=== PATIENT | male | born 1960 | race Caucasian/White ===

== ENCOUNTER 2019-07-28 16:04 | Observation (INO) | payer BC ==
[2019-07-28] MEDS ORDERED: Diltiazem 25 MG/5 ML SDV IVPUSH ONE ×2 (16:35→17:06)
[2019-07-28] MEDS ORDERED: Sodium Chloride 0.9% 1,000 ML IV ONE (16:35)
[2019-07-28] MEDS ORDERED: Ondansetron 4 MG/2 ML SDV IVPUSH ONE (16:45)
[2019-07-28 16:57] LABS: BLOOD UREA NITROGEN,BUN 16 mg/dL (7.0-18.0); CARBON DIOXIDE,CO2 26.5 mmol/L (21.0-32.0); CHLORIDE,CL 105 mmol/L (98-107); GLUCOSE RANDOM 103 mg/dL (74-106); POTASSIUM,K 3.5 mmol/L (3.5-5.1); SODIUM,NA 140 mmol/L (136-148)
[2019-07-28] MEDS ORDERED: Enoxaparin 60 MG/0.6 ML Syringe SUBCUT ONE (17:06)
--- NOTE | 2019-07-28 17:08 | EDM.PDOC ---
ED HPI GENERAL MEDICAL PROBLEM - General Chief Complaint: Cardiovascular Problem Stated Complaint: A-FIB Time Seen by Provider: 07/28/19 17:06 Source of Information: Reports: Patient - History of Present Illness INITIAL COMMENTS - FREE TEXT/NARRATIVE: HISTORY AND PHYSICAL: History of present illness: []Patient presents via private vehicle, apparently seen at [facility] and diagnosed with A. fib with RVR, I did not status speak with the physician however the patient presents by private vehicle as above his rate is 160s on arrival rated provide fluids diltiazem with some improvement in rate remains in atrial fibrillation No fever nausea vomiting chills sweats no chest pain shortness breath headache dizziness palpitation no bowel or urine symptoms Chronic illness or disease no medications no cardiac history Review of systems: As per history of present illness and below otherwise all systems reviewed and negative. Past medical history: As per history of present illness and as reviewed below otherwise noncontributory. Surgical history: As per history of present illness and as reviewed below otherwise noncontributory. Social history: No reported history of drug or alcohol abuse. Family history: As per history of present illness and as reviewed below otherwise noncontributory. Physical exam: HEENT: Atraumatic, normocephalic, pupils reactive, negative for conjunctival pallor or scleral icterus, mucous membranes moist, throat clear, neck supple, nontender, trachea midline. Lungs: Clear to auscultation, breath sounds equal bilaterally, chest nontender. Heart: S1S2, regular, negative for clicks, rubs, or JVD. Abdomen: Soft, nondistended, nontender. Negative for masses or hepatosplenomegaly. Negative for costovertebral tenderness. Pelvis: Stable nontender. Genitourinary: Deferred. Rectal: Deferred. Extremities: Atraumatic, negative for cords or calf pain. Neurovascular unremarkable. Neuro: Awake, alert, oriented. Cranial nerves II through XII unremarkable. Cerebellum unremarkable. Motor and sensory unremarkable throughout. Exam nonfocal. Diagnostics: [CBC CMP UA troponin INR Chest 1 view EKG ] Therapeutics: [ normal saline Cardizem ] Impression: [ new-onset A. fib with RVR ] Definitive disposition and diagnosis as appropriate pending reevaluation and review of above. - Related Data Allergies Allergy/AdvReac Type Severity Reaction Status Date / Time amoxicillin [From Augmentin] Allergy Hives Verified 07/28/19 16:19 clavulanic acid Allergy Hives Verified 07/28/19 16:19 [From Augmentin] Penicillins Allergy Hives Verified 07/28/19 16:19 Home Meds: Home Meds . [No Known Home Meds] 07/28/19 [History] ED ROS GENERAL - Review of Systems Review Of Systems: See Below ED EXAM, GENERAL - Physical Exam Exam: See Below Course - Vital Signs Last Recorded V/S: Last Vital Signs Temp 97 F 07/28/19 16:28 Pulse 90 07/28/19 17:46 Resp 18 07/28/19 17:46 BP 112/78 07/28/19 17:46 Pulse Ox 96 07/28/19 17:46 - Orders/Labs/Meds Orders: Active Orders 24 hr Category Date Time Status EKG Documentation Completion [RC] STAT Care 07/28/19 16:35 Active MAGNESIUM [CHEM] Stat Lab 07/28/19 17:48 Ordered UA RFX LORI AND CULT IF INDIC [URIN] Stat Lab 07/28/19 16:35 Ordered Labs: Laboratory Tests 07/28/19 07/28/19 Range/Units 16:19 16:19 WBC 6.31 (4.0-11.0) K/uL RBC 4.91 (4.50-5.90) M/uL Hgb 16.1 (13.0-17.0) g/dL Hct 48.3 (38.0-50.0) % MCV 98.4 H (80.0-98.0) fL MCH 32.8 H (27.0-32.0) pg MCHC 33.3 (31.0-37.0) g/dL RDW Std Deviation 49.0 (28.0-62.0) fl RDW Coeff of Wilder 14 (11.0-15.0) % Plt Count 158 (150-400) K/uL MPV 11.60 (7.40-12.00) fL Neut % (Auto) 56.8 (48.0-80.0) % Lymph % (Auto) 29.8 (16.0-40.0) % [place] % (Auto) 10.5 (0.0-15.0) % Eos % (Auto) 2.4 (0.0-7.0) % Baso % (Auto) 0.5 (0.0-1.5) % Neut # (Auto) 3.6 (1.4-5.7) K/uL Lymph # (Auto) 1.9 (0.6-2.4) K/uL [place] # (Auto) 0.7 (0.0-0.8) K/uL Eos # (Auto) 0.2 (0.0-0.7) K/uL Baso # (Auto) 0.0 (0.0-0.1) K/uL Nucleated RBC % 0.0 /100WBC Nucleated RBCs # 0 K/uL Sodium 140 (136-148) mmol/L Potassium 3.5 (3.5-5.1) mmol/L Chloride 105 (98-107) mmol/L Carbon Dioxide 26.5 (21.0-32.0) mmol/L BUN 16 (7.0-18.0) mg/dL Creatinine 1.2 (0.8-1.3) mg/dL Est Cr Clr Drug Dosing 67.10 mL/min Estimated GFR (MDRD) > 60.0 ml/min Glucose 103 (74-106) mg/dL Calcium 8.8 (8.5-10.1) mg/dL Total Bilirubin 0.2 (0.2-1.0) mg/dL AST 19 (15-37) IU/L ALT 26 (14-63) IU/L Alkaline Phosphatase 58 (46-116) U/L Troponin I < 0.050 (0.000-0.056) ng/mL Total Protein 7.0 (6.4-8.2) g/dL Albumin 3.6 (3.4-5.0) g/dL Globulin 3.4 (2.6-4.0) g/dL Albumin/Globulin Ratio 1.1 (0.9-1.6) Meds: Medications Discontinued Medications Generic Name Dose Route Start Last Admin Trade Name Freq PRN Reason Stop Dose Admin Diltiazem HCl 25 mg 07/28/19 16:35 07/28/19 16:47 Diltiazem IVPUSH 07/28/19 16:36 25 mg ONETIME ONE Administration Diltiazem HCl 20 mg 07/28/19 17:06 Diltiazem IVPUSH 07/28/19 17:07 ONETIME ONE Enoxaparin Sodium 85 mg 07/28/19 17:38 07/28/19 17:43 Lovenox SUBCUT 07/28/19 17:39 85 mg ONETIME ONE Administration Sodium Chloride 1,000 mls @ 999 mls/hr 07/28/19 16:35 07/28/19 16:46 Normal Saline IV 07/28/19 17:35 999 mls/hr STAT ONE Administration Ondansetron HCl 4 mg 07/28/19 16:45 Zofran IVPUSH 07/28/19 16:46 ONETIME ONE Departure - Departure Time of Disposition: 17:48 Disposition: Refer to Observation Condition: Fair Clinical Impression: Atrial fibrillation with RVR Referrals: PCP,None [Primary Care Provider] - Forms: ED Department Discharge - My Orders Last 24 Hours: My Active Orders 07/28/19 16:35 EKG Documentation Completion [RC] STAT UA RFX LORI AND CULT IF INDIC [URIN] Stat - Assessment/Plan Last 24 Hours: My Active Orders 07/28/19 16:35 EKG Documentation Completion [RC] STAT UA RFX LORI AND CULT IF INDIC [URIN] Stat
--- NOTE | 2019-07-28 17:16 | CR ---
Indication: AFib. Technique: A single AP portable view of the chest was obtained. Comparison: None Findings: The heart is normal in size. The lungs are clear. No infiltrate, pleural effusion, pneumothorax is identified. Impression: No acute cardiopulmonary process. Dictated by Veronica Cerna MD @ Jul 28 2019 5:14PM Signed by Dr. Veronica Cerna @ Jul 28 2019 5:15PM
[2019-07-28] MEDS ORDERED: Enoxaparin 100 MG/1 ML Syringe SUBCUT ONE (17:38)
[2019-07-28] MEDS ORDERED: Potassium Chloride 20 MEQ Tab.ER PO ONE (17:48)
--- NOTE | 2019-07-28 18:50 | PCM.HP.2 ---
H&P History of Present Illness - General Date of Service: 07/28/19 Admit Problem/Dx: Admission Diagnosis/Problem Admission Diagnosis/Problem Atrial fibrillation - History of Present Illness Initial Comments - Free Text/Narative: 59 yo male who presents to the ED with complaints of chest tightness intermittently for several days. It would last for several hours and he describes the discomfort as fast heart beat. He has some shortness of breath with this. IN the ED he was noted to be in atrial fibrillation with a heart rate of 160. He was given IV diltiazem and converted to normal sinus with heart rate of 90 bpm. - Related Data Allergies/Adverse Reactions: Allergies Allergy/AdvReac Type Severity Reaction Status Date / Time amoxicillin [From Augmentin] Allergy Hives Verified 07/28/19 20:16 clavulanic acid Allergy Hives Verified 07/28/19 20:16 [From Augmentin] Penicillins Allergy Hives Verified 07/28/19 20:16 Home Medications: Home Meds . [No Known Home Meds] 07/28/19 [History] Past Medical History Other HEENT History: eardrum replacement - Past Surgical History HEENT Surgical History: Reports: Tonsillectomy Social & Family History - Family History Family Medical History: Noncontributory - Tobacco Use Smoking Status *Q: Never Smoker - Recreational Drug Use Recreational Drug Use: No H&P Review of Systems - Review of Systems: Review Of Systems: Comprehensive ROS is negative, except as noted in HPI. Exam - Exam Exam: See Below - Vital Signs Vital Signs: Last Vital Signs Temp 36.1 C 07/28/19 16:28 Pulse 90 07/28/19 17:46 Resp 18 07/28/19 17:46 BP 112/78 07/28/19 17:46 Pulse Ox 96 07/28/19 17:46 Weight: 83.915 kg - Exam General: Alert, Oriented HEENT: Mucosa Moist & [place] Neck: Supple Lungs: Clear to Auscultation, Normal Respiratory Effort Cardiovascular: Regular Rate, Regular Rhythm Extremities: Non-Tender, No Pedal Edema Skin: Warm, Dry, Intact Neurological: No: Focal Deficit - Patient Data Lab Results Last 24 hrs: Laboratory Results - last 24 hr 07/28/19 07/28/19 07/28/19 Range/Units 16:19 16:19 16:19 WBC 6.31 (4.0-11.0) K/uL RBC 4.91 (4.50-5.90) M/uL Hgb 16.1 (13.0-17.0) g/dL Hct 48.3 (38.0-50.0) % MCV 98.4 H (80.0-98.0) fL MCH 32.8 H (27.0-32.0) pg MCHC 33.3 (31.0-37.0) g/dL RDW Std Deviation 49.0 (28.0-62.0) fl RDW Coeff of Wilder 14 (11.0-15.0) % Plt Count 158 (150-400) K/uL MPV 11.60 (7.40-12.00) fL Neut % (Auto) 56.8 (48.0-80.0) % Lymph % (Auto) 29.8 (16.0-40.0) % [place] % (Auto) 10.5 (0.0-15.0) % Eos % (Auto) 2.4 (0.0-7.0) % Baso % (Auto) 0.5 (0.0-1.5) % Neut # (Auto) 3.6 (1.4-5.7) K/uL Lymph # (Auto) 1.9 (0.6-2.4) K/uL [place] # (Auto) 0.7 (0.0-0.8) K/uL Eos # (Auto) 0.2 (0.0-0.7) K/uL Baso # (Auto) 0.0 (0.0-0.1) K/uL Nucleated RBC % 0.0 /100WBC Nucleated RBCs # 0 K/uL Sodium 140 (136-148) mmol/L Potassium 3.5 (3.5-5.1) mmol/L Chloride 105 (98-107) mmol/L Carbon Dioxide 26.5 (21.0-32.0) mmol/L BUN 16 (7.0-18.0) mg/dL Creatinine 1.2 (0.8-1.3) mg/dL Est Cr Clr Drug Dosing 67.10 mL/min Estimated GFR (MDRD) > 60.0 ml/min Glucose 103 (74-106) mg/dL Calcium 8.8 (8.5-10.1) mg/dL Magnesium 1.9 (1.8-2.4) mg/dL Total Bilirubin 0.2 (0.2-1.0) mg/dL AST 19 (15-37) IU/L ALT 26 (14-63) IU/L Alkaline Phosphatase 58 (46-116) U/L Troponin I < 0.050 (0.000-0.056) ng/mL Total Protein 7.0 (6.4-8.2) g/dL Albumin 3.6 (3.4-5.0) g/dL Globulin 3.4 (2.6-4.0) g/dL Albumin/Globulin Ratio 1.1 (0.9-1.6) Result Diagrams: 07/29/19 03:00 07/29/19 03:00 Problem List Initiated/Reviewed/Updated: Yes Orders Last 24hrs: Active Orders 24 hr Category Date Time Status Admission Status [Patient Status] [ADT] Stat ADT 07/28/19 17:49 Active Antiembolic Devices [RC] PER UNIT ROUTINE Care 07/28/19 18:44 Active Oxygen Therapy [RC] PRN Care 07/28/19 18:43 Active Up ad Yancy [RC] ASDIRECTED Care 07/28/19 18:43 Active VTE/DVT Education [RC] PER UNIT ROUTINE Care 07/28/19 18:43 Active Vital Signs [RC] Q4H Care 07/28/19 18:43 Active Regular Diet [DIET] Diet 07/28/19 Breakfast Active BASIC METABOLIC PANEL,BMP [CHEM] AM Lab 07/29/19 05:11 Ordered CBC WITH AUTO DIFF [HEME] AM Lab 07/29/19 05:11 Ordered TROPONIN I [CHEM] Q6H Lab 07/28/19 21:00 Ordered TROPONIN I [CHEM] Q6H Lab 07/29/19 03:00 Ordered UA RFX LORI AND CULT IF INDIC [URIN] Stat Lab 07/28/19 16:35 Ordered Metoprolol Tartrate [Lopressor] Med 07/28/19 21:00 Active 25 mg PO Q12H Sequential Compression Device [OM.PC] Per Unit Routine Oth 07/28/19 18:44 Ordered Resuscitation Status Routine Resus Stat 07/28/19 18:43 Ordered Medication Orders Metoprolol Tartrate (Lopressor) 25 mg PO Q12H ARYAN Assessment/Plan Comment:: 59 yo male admitted for atrial fibrillation with RVR. His heart rate is now in normal sinus rhythm. We will monitor overnight on telemetry. He was given lovenox, a liter of fluid and potassium in the ED. We will start metoprolol tonight.
[2019-07-28] MEDS: Metoprolol Tartrate 25 MG Tab PO SCH (21:44)
[2019-07-29 03:20] LABS: BLOOD UREA NITROGEN,BUN 15 mg/dL (7.0-18.0); CARBON DIOXIDE,CO2 28.5 mmol/L (21.0-32.0); CHLORIDE,CL 104 mmol/L (98-107); GLUCOSE RANDOM 87 mg/dL (74-106); POTASSIUM,K 4.1 mmol/L (3.5-5.1); SODIUM,NA 139 mmol/L (136-148)
--- NOTE | 2019-07-29 07:26 | PCM.DCSUM1 ---
Discharge Summary - Discharge Data Discharge Date: 07/29/19 Discharge Disposition: Home, Self-Care 01 Condition: Stable - Referral to Home Health Primary Care Physician: PCP None - Patient Summary/Data Hospital Course: 59 yo male who was admitted for atrial fibrillation with RVR. He presented to the ED with complaints of palpitations intermittently for several days. In the ED he was noted to be in atrial fibrillation with a heart rate of 160. He was given IV diltiazem and converted to normal sinus with heart rate of 90 bpm. He was monitored on medical floor overnight and has remained in normal sinus. He was give a dose of Metoprolol but was noted to have borderline low blood pressures so it was not continued. He had serial negative cardiac enzymes. CHADVASC score was zero. He was discharged home and is to have follow up with [facility]. - Discharge Plan Home Medications: Home Meds . [No Known Home Meds] 07/28/19 [History] Forms: ED Department Discharge Referrals: PCP,None [Primary Care Provider] - - Discharge Summary/Plan Comment DC Time >30 min.: No - Patient Data Vitals - Most Recent: Last Vital Signs Temp 36.3 C 07/29/19 04:38 Pulse 63 07/29/19 04:38 Resp 18 07/29/19 04:38 BP 101/59 L 07/29/19 04:38 Pulse Ox 96 07/29/19 04:38 Weight - Most Recent: 83.915 kg I&O - Last 24 hours: Intake & Output 07/28/19 07/29/19 07/29/19 22:59 06:59 14:59 Intake Total 1100 Output Total 1050 Balance 50 Lab Results - Last 24 hrs: Laboratory Results - last 24 hr 07/28/19 07/28/19 07/28/19 Range/Units 16:19 16:19 16:19 WBC 6.31 (4.0-11.0) K/uL RBC 4.91 (4.50-5.90) M/uL Hgb 16.1 (13.0-17.0) g/dL Hct 48.3 (38.0-50.0) % MCV 98.4 H (80.0-98.0) fL MCH 32.8 H (27.0-32.0) pg MCHC 33.3 (31.0-37.0) g/dL RDW Std Deviation 49.0 (28.0-62.0) fl RDW Coeff of Wilder 14 (11.0-15.0) % Plt Count 158 (150-400) K/uL MPV 11.60 (7.40-12.00) fL Neut % (Auto) 56.8 (48.0-80.0) % Lymph % (Auto) 29.8 (16.0-40.0) % [place] % (Auto) 10.5 (0.0-15.0) % Eos % (Auto) 2.4 (0.0-7.0) % Baso % (Auto) 0.5 (0.0-1.5) % Neut # (Auto) 3.6 (1.4-5.7) K/uL Lymph # (Auto) 1.9 (0.6-2.4) K/uL [place] # (Auto) 0.7 (0.0-0.8) K/uL Eos # (Auto) 0.2 (0.0-0.7) K/uL Baso # (Auto) 0.0 (0.0-0.1) K/uL Nucleated RBC % 0.0 /100WBC Nucleated RBCs # 0 K/uL Sodium 140 (136-148) mmol/L Potassium 3.5 (3.5-5.1) mmol/L Chloride 105 (98-107) mmol/L Carbon Dioxide 26.5 (21.0-32.0) mmol/L BUN 16 (7.0-18.0) mg/dL Creatinine 1.2 (0.8-1.3) mg/dL Est Cr Clr Drug Dosing 67.10 mL/min Estimated GFR (MDRD) > 60.0 ml/min Glucose 103 (74-106) mg/dL Calcium 8.8 (8.5-10.1) mg/dL Magnesium 1.9 (1.8-2.4) mg/dL Total Bilirubin 0.2 (0.2-1.0) mg/dL AST 19 (15-37) IU/L ALT 26 (14-63) IU/L Alkaline Phosphatase 58 (46-116) U/L Troponin I < 0.050 (0.000-0.056) ng/mL Total Protein 7.0 (6.4-8.2) g/dL Albumin 3.6 (3.4-5.0) g/dL Globulin 3.4 (2.6-4.0) g/dL Albumin/Globulin Ratio 1.1 (0.9-1.6) Urine Color Urine Appearance Urine pH (5.0-8.0) Ur Specific [place] (1.001-1.035) Urine Protein (NEGATIVE) mg/dL Urine Glucose (UA) (NEGATIVE) mg/dL Urine Ketones (NEGATIVE) mg/dL Urine Occult Blood (NEGATIVE) Urine Nitrite (NEGATIVE) Urine Bilirubin (NEGATIVE) Urine Urobilinogen (<2.0) EU/dL Ur Leukocyte Esterase (NEGATIVE) 07/28/19 07/28/19 07/29/19 Range/Units 19:00 21:05 03:00 WBC (4.0-11.0) K/uL RBC (4.50-5.90) M/uL Hgb (13.0-17.0) g/dL Hct (38.0-50.0) % MCV (80.0-98.0) fL MCH (27.0-32.0) pg MCHC (31.0-37.0) g/dL RDW Std Deviation (28.0-62.0) fl RDW Coeff of Wilder (11.0-15.0) % Plt Count (150-400) K/uL MPV (7.40-12.00) fL Neut % (Auto) (48.0-80.0) % Lymph % (Auto) (16.0-40.0) % [place] % (Auto) (0.0-15.0) % Eos % (Auto) (0.0-7.0) % Baso % (Auto) (0.0-1.5) % Neut # (Auto) (1.4-5.7) K/uL Lymph # (Auto) (0.6-2.4) K/uL [place] # (Auto) (0.0-0.8) K/uL Eos # (Auto) (0.0-0.7) K/uL Baso # (Auto) (0.0-0.1) K/uL Nucleated RBC % /100WBC Nucleated RBCs # K/uL Sodium (136-148) mmol/L Potassium (3.5-5.1) mmol/L Chloride (98-107) mmol/L Carbon Dioxide (21.0-32.0) mmol/L BUN (7.0-18.0) mg/dL Creatinine (0.8-1.3) mg/dL Est Cr Clr Drug Dosing mL/min Estimated GFR (MDRD) ml/min Glucose (74-106) mg/dL Calcium (8.5-10.1) mg/dL Magnesium (1.8-2.4) mg/dL Total Bilirubin (0.2-1.0) mg/dL AST (15-37) IU/L ALT (14-63) IU/L Alkaline Phosphatase (46-116) U/L Troponin I < 0.050 < 0.050 (0.000-0.056) ng/mL Total Protein (6.4-8.2) g/dL Albumin (3.4-5.0) g/dL Globulin (2.6-4.0) g/dL Albumin/Globulin Ratio (0.9-1.6) Urine Color YELLOW Urine Appearance CLEAR Urine pH 6.0 (5.0-8.0) Ur Specific [place] 1.010 (1.001-1.035) Urine Protein NEGATIVE (NEGATIVE) mg/dL Urine Glucose (UA) NEGATIVE (NEGATIVE) mg/dL Urine Ketones NEGATIVE (NEGATIVE) mg/dL Urine Occult Blood NEGATIVE (NEGATIVE) Urine Nitrite NEGATIVE (NEGATIVE) Urine Bilirubin NEGATIVE (NEGATIVE) Urine Urobilinogen 0.2 (<2.0) EU/dL Ur Leukocyte Esterase NEGATIVE (NEGATIVE) 07/29/19 07/29/19 Range/Units 03:00 03:00 WBC 6.72 (4.0-11.0) K/uL RBC 4.62 (4.50-5.90) M/uL Hgb 15.4 (13.0-17.0) g/dL Hct 45.6 (38.0-50.0) % MCV 98.7 H (80.0-98.0) fL MCH 33.3 H (27.0-32.0) pg MCHC 33.8 (31.0-37.0) g/dL RDW Std Deviation 49.8 (28.0-62.0) fl RDW Coeff of Wilder 14 (11.0-15.0) % Plt Count 162 (150-400) K/uL MPV 11.10 (7.40-12.00) fL Neut % (Auto) 55.0 (48.0-80.0) % Lymph % (Auto) 32.4 (16.0-40.0) % [place] % (Auto) 9.5 (0.0-15.0) % Eos % (Auto) 2.7 (0.0-7.0) % Baso % (Auto) 0.4 (0.0-1.5) % Neut # (Auto) 3.7 (1.4-5.7) K/uL Lymph # (Auto) 2.2 (0.6-2.4) K/uL [place] # (Auto) 0.6 (0.0-0.8) K/uL Eos # (Auto) 0.2 (0.0-0.7) K/uL Baso # (Auto) 0.0 (0.0-0.1) K/uL Nucleated RBC % 0.0 /100WBC Nucleated RBCs # 0 K/uL Sodium 139 (136-148) mmol/L Potassium 4.1 (3.5-5.1) mmol/L Chloride 104 (98-107) mmol/L Carbon Dioxide 28.5 (21.0-32.0) mmol/L BUN 15 (7.0-18.0) mg/dL Creatinine 1.1 (0.8-1.3) mg/dL Est Cr Clr Drug Dosing 73.20 mL/min Estimated GFR (MDRD) > 60.0 ml/min Glucose 87 (74-106) mg/dL Calcium 8.7 (8.5-10.1) mg/dL Magnesium (1.8-2.4) mg/dL Total Bilirubin (0.2-1.0) mg/dL AST (15-37) IU/L ALT (14-63) IU/L Alkaline Phosphatase (46-116) U/L Troponin I (0.000-0.056) ng/mL Total Protein (6.4-8.2) g/dL Albumin (3.4-5.0) g/dL Globulin (2.6-4.0) g/dL Albumin/Globulin Ratio (0.9-1.6) Urine Color Urine Appearance Urine pH (5.0-8.0) Ur Specific [place] (1.001-1.035) Urine Protein (NEGATIVE) mg/dL Urine Glucose (UA) (NEGATIVE) mg/dL Urine Ketones (NEGATIVE) mg/dL Urine Occult Blood (NEGATIVE) Urine Nitrite (NEGATIVE) Urine Bilirubin (NEGATIVE) Urine Urobilinogen (<2.0) EU/dL Ur Leukocyte Esterase (NEGATIVE) Med Orders - Current: Current Medications Metoprolol Tartrate (Lopressor) 25 mg PO Q12H [facility] Last Admin: 07/28/19 21:44 Dose: 25 mg Discontinued Medications Diltiazem HCl (Diltiazem) 25 mg IVPUSH ONETIME ONE Stop: 07/28/19 16:36 Last Admin: 07/28/19 16:47 Dose: 25 mg Diltiazem HCl (Diltiazem) 20 mg IVPUSH ONETIME ONE Stop: 07/28/19 17:07 Last Admin: 07/28/19 18:10 Dose: Not Given Enoxaparin Sodium (Lovenox) 85 mg SUBCUT ONETIME ONE Stop: 07/28/19 17:39 Last Admin: 07/28/19 17:43 Dose: 85 mg Sodium Chloride (Normal Saline) 1,000 mls @ 999 mls/hr IV STAT ONE Stop: 07/28/19 17:35 Last Admin: 07/28/19 16:46 Dose: 999 mls/hr Ondansetron HCl (Zofran) 4 mg IVPUSH ONETIME ONE Stop: 07/28/19 16:46 Potassium Chloride (Klor-Con M20) 40 meq PO ONETIME ONE Stop: 07/28/19 17:49 Last Admin: 07/28/19 18:19 Dose: 40 meq
[2019-07-29] MEDS: Metoprolol Tartrate 25 MG Tab PO SCH (09:19)
== END 2019-07-29 11:45 | disposition home or self-care (01) ==
LOC: MW.ED 16:04 → MW.MS 18:15
PROVIDERS: ADMIT Internal Medicine; ATTEND Internal Medicine
DX: I48.91 Unspecified atrial fibrillation (principal); Z88.0 Allergy status to penicillin; Z88.8 Allergy status to other drugs, medicaments and biological substances
CPT/HCPCS: 36415; 71045; 80048; 80053; 81003; 83735; 84484; 85025; 93005; 96361; 96372; 96374; 99285; A9270; G0378; J1650; J3490; J7040